=== PATIENT | male | born 1990 | race Two or more races ===

== ENCOUNTER 2016-10-23 23:56 | Emergency (ER) | payer SELFPAY ==
--- NOTE | 2016-10-24 00:18 | ED Physician Chart ---
Chief Complaint/HPI - Patient Information Date Seen:: 10/24/16 Time Seen:: 00:00 Chief Complaint:: headache History of Present Illness:: 26-year-old male, otherwise healthy, complains of acute, constant, intermittent , aching, moderate, headaches 4 days. Has associated generalized body aches, fevers, and nausea but no vomiting. Also has associated cough that started this morning. Historian:: Patient Review:: Nurse's Note Reviewed Review of Systems - Review of Systems Other: Complete system review otherwise unremarkable except as noted in HPI. Past Medical History - Past Medical History Past Medical History: No significant medical hx Family History: None Social History: Non Smoker, No Alcohol, No Drug Use, Employed Surgical History: None Psychiatricy History: None Medication: None Family Medical History - Family Member Mother History Unknown: Yes Physical Exam - Physical Examination Other:: INITIAL VITAL SIGNS: Reviewed by me GENERAL: Alert and interactive. No acute distress HEAD: Head is normocephalic and atraumatic EYES: EOMI. . No scleral icterus. No conjunctival injection ENT: Moist mucous membranes. NECK: Supple. No masses. Full range of motion RESPIRATORY: No tachypnea. Clear breath sounds bilaterally. No wheezing, rales, or rhonchi CV: Regular rate and rhythm. No murmurs, rubs, or gallops ABDOMEN: Soft, non-distended, non-tender. No guarding. No rebound. No masses. EXTREMITIES: No deformity. No cyanosis. No edema. SKIN: Warm and dry. No obvious rashes. NEUROLOGIC: Alert and oriented. Face is symmetric. Speech is normal. Moves all extremities equally. Motor and sensory distally intact. Labs/Radiology/EKG Results - Lab Results Results: Lab Results 10/24/16 10/24/16 10/24/16 Range/Units 00:35 00:35 01:15 WBC 11.6 H (4.8-10.8) Th/cmm RBC 4.89 (4.30-5.70) Mil/cmm Hgb 14.0 (13.2-17.3) gm/dL Hct 40.7 (39.0-49.0) % MCV 83.1 (80-99) fl MCH 28.7 (26.0-30.0) pg MCHC Differential 34.5 (28.0-36.0) pg RDW 12.9 (11.5-20.0) % Plt Count 182 (150-400) Th/cmm MPV 8.2 fl Neutrophils % 65.1 (40.0-80.0) % Lymphocytes % 19.3 L (20.0-50.0) % Monocytes % 14.7 H (2.0-10.0) % Eosinophils % 0.5 (0.0-5.0) % Basophils % 0.4 (0.0-2.0) % Sodium 130 L (136-145) mEq/L Potassium 3.9 (3.5-5.1) mEq/L Chloride 97 L (98-107) mEq/L Carbon Dioxide 26.7 (21.0-31.0) mEq/L Anion Gap 10.2 (7.0-16.0) BUN 10 (7-25) mg/dL Creatinine 0.9 (0.7-1.3) mg/dL Est GFR ( Amer) > 60.0 (>90) ml/min Est GFR (Non-Af Amer) > 60.0 ml/min BUN/Creatinine Ratio 11.1 Glucose 112 H (70-105) mg/dL Calcium 9.1 (8.6-10.3) mg/dL Total Bilirubin 0.9 (0.3-1.0) mg/dL AST 29 (13-39) U/L ALT 74 H (7-52) U/L Alkaline Phosphatase 92 (34-104) U/L Total Protein 7.5 (6.0-8.3) gm/dL Albumin 4.3 (4.2-5.5) gm/dL Globulin 3.2 gm/dL Albumin/Globulin Ratio 1.3 (1.0-1.8) Urine Source CLEAN C Urine Color YELLOW Urine Clarity CLEAR (CLEAR) Urine pH 7.5 Ur Specific Aldrich 1.020 (1.005-1.030) Urine Protein NEGATIVE (NEGATIVE) mg/dL Urine Glucose (UA) NEGATIVE (NEGATIVE) mg/dL Urine Ketones NEGATIVE (NEGATIVE) mg/dL Urine Blood MODERATE H (NEGATIVE) Urine Nitrate NEGATIVE (NEGATIVE) Urine Bilirubin NEGATIVE (NEGATIVE) Urine Urobilinogen 0.2 (0.2 - 1.0) E.U./dL Ur Leukocyte Esterase NEGATIVE (NEGATIVE) Urine RBC 2-5 H (0-5) /hpf Urine WBC 0-2 (0-5) /hpf Ur Epithelial Cells OCCASIONAL (FEW) /lpf Urine Bacteria OCCASIONAL (NONE SEEN) /hpf Urine Opiates Screen (NEGATIVE) Ur Barbiturates Screen (NEGATIVE) Ur Phencyclidine Scrn (NEGATIVE) Amphetamines Screen (NEGATIVE) U Methamphetamines Scrn (NEGATIVE) U Benzodiazepines Scrn (NEGATIVE) U Cocaine Metab Screen (NEGATIVE) U Cannabinoids Screen (NEGATIVE) 10/24/16 Range/Units 01:15 WBC (4.8-10.8) Th/cmm RBC (4.30-5.70) Mil/cmm Hgb (13.2-17.3) gm/dL Hct (39.0-49.0) % MCV (80-99) fl MCH (26.0-30.0) pg MCHC Differential (28.0-36.0) pg RDW (11.5-20.0) % Plt Count (150-400) Th/cmm MPV fl Neutrophils % (40.0-80.0) % Lymphocytes % (20.0-50.0) % Monocytes % (2.0-10.0) % Eosinophils % (0.0-5.0) % Basophils % (0.0-2.0) % Sodium (136-145) mEq/L Potassium (3.5-5.1) mEq/L Chloride (98-107) mEq/L Carbon Dioxide (21.0-31.0) mEq/L Anion Gap (7.0-16.0) BUN (7-25) mg/dL Creatinine (0.7-1.3) mg/dL Est GFR ( Amer) (>90) ml/min Est GFR (Non-Af Amer) ml/min BUN/Creatinine Ratio Glucose (70-105) mg/dL Calcium (8.6-10.3) mg/dL Total Bilirubin (0.3-1.0) mg/dL AST (13-39) U/L ALT (7-52) U/L Alkaline Phosphatase (34-104) U/L Total Protein (6.0-8.3) gm/dL Albumin (4.2-5.5) gm/dL Globulin gm/dL Albumin/Globulin Ratio (1.0-1.8) Urine Source Urine Color Urine Clarity (CLEAR) Urine pH Ur Specific Aldrich (1.005-1.030) Urine Protein (NEGATIVE) mg/dL Urine Glucose (UA) (NEGATIVE) mg/dL Urine Ketones (NEGATIVE) mg/dL Urine Blood (NEGATIVE) Urine Nitrate (NEGATIVE) Urine Bilirubin (NEGATIVE) Urine Urobilinogen (0.2 - 1.0) E.U./dL Ur Leukocyte Esterase (NEGATIVE) Urine RBC (0-5) /hpf Urine WBC (0-5) /hpf Ur Epithelial Cells (FEW) /lpf Urine Bacteria (NONE SEEN) /hpf Urine Opiates Screen NEGATIVE (NEGATIVE) Ur Barbiturates Screen NEGATIVE (NEGATIVE) Ur Phencyclidine Scrn NEGATIVE (NEGATIVE) Amphetamines Screen NEGATIVE (NEGATIVE) U Methamphetamines Scrn NEGATIVE (NEGATIVE) U Benzodiazepines Scrn NEGATIVE (NEGATIVE) U Cocaine Metab Screen NEGATIVE (NEGATIVE) U Cannabinoids Screen NEGATIVE (NEGATIVE) ED Septic Shock - . Is Septic Shock (SBP<90, OR Lactate>4 mmol\L) present?: No Reassessment (Disposition) - Reassessment Reassessment:: Patient appears to have a viral flulike syndrome. All lab results discussed with the patient in detail. We have provided IV fluids and IV Toradol, IV Compazine, IV Decadron. Patient's symptoms have greatly improved. We will provide a prescription for ibuprofen and Zofran. Recommended follow-up with PCP in one to 2 days. Gave return to ER precautions. Patient says he understands and agrees the plan. - Diagnosis Diagnosis:: Viral syndrome Hyponatremia Hematuria - Aftercare/Follow up Instructions Aftercare/Follow-Up Instructions:: Counseled pt regarding lab results/diagnosis & need follow up, Refer to Discharge Instructions - Patient Disposition Discharge/Transfer:: Home Time:: 01:30 Condition at Disposition:: Improved ED Discharge Plan - Patient Disposition Admit/Discharge/Transfer: PT DISCHARGED HOME Condition at Disposition: Improved Instructions: Viral Infections, [id number]
[2016-10-24] MEDS ORDERED: Dexamethasone Sodium Phos 4 mg/mL Vial IVP STA (00:25)
[2016-10-24] MEDS ORDERED: Sodium Chloride 0.9% 500 ML IV ONE (00:25)
[2016-10-24] MEDS ORDERED: Prochlorperazine 5 mg/mL 2mL Vial IVP STA (00:26)
[2016-10-24 00:42] LABS: % BASOPHILS 0.4 % (0.0-2.0); % EOSINOPHILS 0.5 % (0.0-5.0); % LYMPHOCYTES 19.3 % (20.0-50.0); % MONOCYTES 14.7 % (2.0-10.0); % NEUTROPHILS 65.1 % (40.0-80.0); HEMATOCRIT 40.7 % (39.0-49.0); MEAN CELL VOLUME 83.1 fl (80-99); MEAN CORPUSCULAR HEMOGLOBIN 28.7 pg (26.0-30.0); MEAN CORPUSCULAR HGB CONC 34.5 pg (28.0-36.0); MEAN PLATELET VOLUME 8.2 fl; NEUTROPHILE ABSOLUTE 7.6 Th/cmm (1.8-8.0); PLATELET COUNT 182 Th/cmm (150-400); RED BLOOD COUNT 4.89 Mil/cmm (4.30-5.70); RED CELL DISTRIBUTION WIDTH 12.9 % (11.5-20.0); WHITE BLOOD COUNT 11.6 Th/cmm (4.8-10.8)
[2016-10-24] MEDS ORDERED: Dexamethasone Sodium Phos 10 mg/mL PF Vial ONE (00:57)
[2016-10-24] MEDS ORDERED: Prochlorperazine 5 mg/mL 2mL Vial ONE (00:57)
[2016-10-24 00:58] LABS: ALB/GLOB RATIO 1.3 (1.0-1.8); ALKALINE PHOSPHATASE 92 U/L (34-104); ANION GAP 10.2 (7.0-16.0); BILIRUBIN,TOTAL 0.9 mg/dL (0.3-1.0); BUN - UREA NITROGEN 10 mg/dL (7-25); BUN/CREATININE RATIO 11.1; CALCIUM SERUM 9.1 mg/dL (8.6-10.3); CARBON DIOXIDE 26.7 mEq/L (21.0-31.0); CHLORIDE 97 mEq/L (98-107); CREATININE - SERUM 0.9 mg/dL (0.7-1.3); GLUCOSE 112 mg/dL (70-105); POTASSIUM SERUM 3.9 mEq/L (3.5-5.1); SGOT 29 U/L (13-39); SGPT/ALT 74 U/L (7-52); SODIUM SERUM 130 mEq/L (136-145)
[2016-10-24 01:40] LABS: AMPHETAMINE URINE NEGATIVE (NEGATIVE); BARBITURATES URINE NEGATIVE (NEGATIVE)
[2016-10-24 01:44] LABS: URINE BILIRUBIN NEGATIVE (NEGATIVE); URINE BLOOD MODERATE (NEGATIVE); URINE COLOR YELLOW; URINE GLUCOSE (UA) NEGATIVE (NEGATIVE); URINE KETONE NEGATIVE (NEGATIVE); URINE PH 7.5; URINE PROTEIN NEGATIVE (NEGATIVE); URINE UROBILINOGEN 0.2 E.U./dL (0.2 - 1.0)
[2016-10-24 01:45] LABS: URINE BACTERIA OCCASIONAL /hpf (NONE SEEN); URINE EPITHELIAL CELLS OCCASIONAL /lpf (FEW); URINE WBC 0-2 /hpf (0-5)
== END 2016-10-24 01:52 | disposition home or self-care (01) ==
LOC: ER 23:56
DX: B34.9 Viral infection, unspecified (principal); E87.1 Hypo-osmolality and hyponatremia; R31.9 Hematuria, unspecified
CPT/HCPCS: 99284; 96374; 96375; 36415; 80300; 85025; 81001; 80053; J1885; J0780; J7030; Z7502